=== PATIENT | male | born 1995 | race Caucasian/White ===

== ENCOUNTER → 2019-10-14 11:00 | Outpatient (BNVA) | payer SELFPAY | PROVIDERS: PCP Nurse Practitioner; Visit Provider Nurse Practitioner Family | DX: F32.9 Major depressive disorder, single episode, unspecified (principal); F41.9 Anxiety disorder, unspecified; R53.83 Other fatigue; E34.9 Endocrine disorder, unspecified; Z79.899 Other long term (current) drug therapy; N52.9 Male erectile dysfunction, unspecified | CPT/HCPCS: 80053; 81001; 83036; 84403; 84439; 84443; 84481; 85025 ==

== ENCOUNTER → 2020-11-18 18:16 | Outpatient (BNVA) | payer SELFPAY | PROVIDERS: PCP Nurse Practitioner; Visit Provider Nurse Practitioner | DX: Z20.2 Contact with and (suspected) exposure to infections with a predominantly sexual mode of transmission (principal) | CPT/HCPCS: 87491; 87591 ==

== ENCOUNTER 2023-05-02 10:59 | Outpatient (CLI) | payer MEDICAID, SELFPAY ==
--- NOTE | 2023-05-02 11:00 | MR_ITS ---
WS: [id number] MRI RIGHT KNEE HISTORY: S83.8X9A - Sprain of other specified parts of unspecified... COMPARISON: None available. Anterior cruciate ligament: Markedly thickened ACL. There is a small amount of increased signal with there is slight interruption of the anterior bundle. No full-thickness tear. Majority of the changes in the ACL are probably related to mucinous degeneration. Posterior cruciate ligament: Intact. Mildly redundant PCL. Medial collateral ligament: Intact. Posterior lateral corner structures: Intact. Medial menisci: Intact. Normal signal, size and shape. Lateral meniscus: Intact. Normal signal, size and shape. Extensor mechanism: Distal quadriceps tendon and patellar tendons are intact. Fluid and soft tissue: Moderate suprapatellar joint effusion. Normal cartilage. No Ramesh's cyst. Osseous and articular structures: Patellofemoral compartment: Normal. Small amount of fluid in the infrapatellar fat pad. Medial compartment: Mild narrowing of the medial compartment. No fracture. Cartilage demonstrates ankit y mild thinning. No full-thickness defects. There is a deep notch within the anterior medial femoral condyle. Small amount of adjacent edema. Lateral compartment: Negative. There is mild posterior translation of the tibia with respect to the femoral condyles. This is result ing in a more vertical orientation of the ACL. IMPRESSION: 1. Diffusely thickened ACL with heterogeneous signal. There is no full-thickness defect. Extensive mu coid degeneration. Possible superimposed very slight tear involving the anterior bundle. ACL is in a very vertical orientation. The vertical orientation is due to slight posterior subluxation of the tib ia with respect to the femoral condyles. 2. Moderate joint effusion. 3. No meniscal tear. 4. Mildly prominent medial anterior femoral condyle notch with adjacent edema. This may be from a rem ote cortical injury with partial healing or developing osteochondral lesion.
== END 2023-05-02 11:00 | disposition home or self-care (01) ==
LOC: RAD 11:01
PROVIDERS: PCP Nurse Practitioner Family; Visit Provider Nurse Practitioner Family
DX: S83.8X1A Sprain of other specified parts of right knee, initial encounter (principal); X58.XXXA Exposure to other specified factors, initial encounter; M25.461 Effusion, right knee; R93.6 Abnormal findings on diagnostic imaging of limbs
CPT/HCPCS: 73721

== ENCOUNTER 2023-09-18 00:31 | Emergency (ER) | payer MEDICAID, SELFPAY ==
[2023-09-18 00:35] VITALS: BP 150/75; PULSE 68; RESP 18; TEMP 36.6; O2SAT 98; BMI 27.2
--- NOTE | 2023-09-18 00:47 | USR_ITS ---
PROCEDURE INFORMATION: Exam: US Scrotum Exam date and time: 09/18/2023 1:03 AM Age: 28 years old Clinical indication: Scrotum pain; Patient HX: Although patient's initial complaint is right scrotal pain, at u/s exmination, the left scrotum is, likewise, very tender to the touch, causing patient to wince several times. Upon closer questioning, patient admits to left scrotal pain in addition to right scrotal pain, chronic x 10 years. No history of trauma or vasectomy. ; Additional info: Right testicle pain TECHNIQUE: Imaging protocol: Real-time ultrasound of the scrotum and contents with color Doppler and image documentation. COMPARISON: No relevant prior studies available. FINDINGS: Right testicle: Normal right testicular blood flow and echogenicity. Right testicle is 4.4 x 2.4 x 3.2 cm. Left testicle: Normal left testicular blood flow and echogenicity. Left testicle is 4.6 x 2.3 x 3.4 cm. Epididymides: 3 mm right epididymal cyst. Scrotum/soft tissues: Mild left varicocele. US/US scrotum [id number] IMPRESSION: 1. Mild left varicocele. 2. No testicular torsion.
--- NOTE | 2023-09-18 00:51 | W.ED.MALEGU ---
HPI - Male Genitourinary General: Chief complaint: Urogenital-Male Stated complaint: Possible Flipped a Testicle Time Seen by Provider: 09/18/23 00:40 History of Present Illness: Patient presents to the ER with complaints of right testicular pain. Patient was having sex and immediately afterwards started experiencing right testicular pain he thinks it is swollen and has a lump on it and it is riding higher on the right than the left. Review of Systems General: Reports: 10 or more systems reviewed and unremarkable except in HPI and below PFSH ED PFSH: Social History Smoking and tobacco/nicotine status: never used tobacco/nicotine Second hand smoke exposure: No Alcohol intake: never Substance/Drug Use: never Current gender identity: Male Physical Exam Const: COMMON NORMALS: no acute distress, average body habitus, patient oriented x3, no limitations, healthy appearing, alert and well nourished Neck/C-Spine: COMMON NORMALS: no JVD Chest: COMMONS NORMALS: normal inspection of the chest and normal palpation of entire chest wall Resp: COMMON NORMALS: normal respiratory effort, No retractions, No use of accessory muscles and clear to auscultation bilaterally AUSCULTATION: clear to auscultation bilaterally Cardio: COMMON NORMALS: no JVD, regular rate, regular rhythm, S1 normal heart sound present, S2 normal heart sound present, No gallops present (Cardio), No clicks present (Cardio), No murmurs present (Cardio) and No rub (Cardio) RATE: regular rate RHYTHM: regular rhythm HEART SOUNDS: S1 normal heart sound present and S2 normal heart sound present GI: COMMON NORMALS: Normal to inspection, nondistended, normoactive bowel sounds present, Soft to palpation, non-tender, No hepatosplenomegaly present and no masses PALPATION: Yes Soft to palpation and Yes No hepatosplenomegaly present Neuro: COMMON NORMALS: patient oriented x3 SENSORIUM/ORIENTATION: Yes alert Course Vital Signs: Vital signs: Vital Signs Temperature 97.9 F 09/18/23 00:35 Pulse Rate 89 09/18/23 02:32 Respiratory Rate 18 09/18/23 00:35 Blood Pressure 120/98 09/18/23 02:32 Pulse Oximetry 98 09/18/23 02:32 Oxygen Delivery Me thod Room Air 09/18/23 02:03 MDM - Male Medical Decision Making Urinalysis was negative, scrotal ultrasound was essentially negative other than left varicocele. Patient be discharged home. Patient should follow-up with his PCP within the next 7 days or sooner as needed. Differential Diagnosis Likely epididymitis; Unlikely urinary tract infection, priapism, urethritis, genital herpes simplex, prostatitis, acute retention of urine or inguinal hernia Medical Records I reviewed the patient's medical records. Lab Data I reviewed the patient's lab results. Radiology Impressions Scrotum Ultrasound 09/18/23 00:47 IMPRESSION: 1. Mild left varicocele. 2. No testicular torsion. Laboratory Results Urine Color Yellow (Yellow) 09/18/23 01:20 Urine Appearance Clear (CLEAR) 09/18/23 01:20 Urine pH 5 (5-7) 09/18/23 01:20 Ur Specific Cabins 1.020 (1.005-1.030) 09/18/23 01:20 Urine Protein Neg (Negative) 09/18/23 01:20 Urine Glucose (UA) Norm (Normal) 09/18/23 01:20 Urine Ketones Negative (Negative) 09/18/23 01:20 Urine Blood Neg (Negative) 09/18/23 01:20 Urine Nitrate Negative (Negative) 09/18/23 01:20 Urine Bilirubin Neg (Negative) 09/18/23 01:20 Urine Urobilinogen Neg mg/dL (Negative) 09/18/23 01:20 Ur Leukocyte Esterase Negative (Negative) 09/18/23 01:20 All radiology interpretation(s) finalized by discharge Discharge Plan Discharge Patient Disposition: Home Clinical Impression: Testicle pain Qualifiers: Laterality: right Qualified Code(s): N50.811 - Right testicular pain Condition: Stable Discharge Orders: Discharge ED (Routine); Ordered 09/18/23 Ordered By: Durga Webb Patient Instructions: Testicle Pain (ED) Activity Restrictions/Additional Instructions: Your urinalysis did not show any signs of infection or blood, the ultrasound did not show any acute causes of testicle pain, such as testicular torsion, hematoma, masses. The testicle pain is probably just due to trauma. Please take Tylenol and/or ibuprofen as needed for the pain and follow-up with your primary care doctor within the next 7 days for further evaluation testing as needed. Coding Level of Care Code ED Numerical Control Lathe Operator for Lizett K[place]
[2023-09-18 01:30] LABS: Add Urine Microscopic? NO; Charge for UA Resulting for Rev
[2023-09-18 01:31] LABS: Bilirubin Urine Neg (Negative); Blood Urine Neg (Negative); Glucose Urine UA Norm (Normal); Ketones Urine Negative (Negative); Leukocyte Esterase Urine Negative (Negative); Nitrate Urine Negative (Negative); Protein Urine Neg (Negative); Urine Appearance Clear (CLEAR); Urine Color Yellow (Yellow); Urobilinogen Urine Neg (Negative); pH Urine 5 (5-7)
[2023-09-18 02:03] VITALS: BP 140/72; PULSE 72; O2SAT 98
[2023-09-18 02:32] VITALS: BP 120/98; PULSE 89; O2SAT 98
== END 2023-09-18 02:32 | disposition home or self-care (01) ==
PROVIDERS: Emergency Provider Emergency Medicine
DX: N50.811 Right testicular pain (principal)
CPT/HCPCS: 76870; 81003; 99284